=== PATIENT | female | born 1990 | race Caucasian/White ===

== ENCOUNTER 2019-03-31 20:25 | Emergency (ER) | payer OTHER ==
[~2019-03-31] VITALS: Ht 157.5 cm; Wt 49.4 kg
[2019-03-31 20:35] VITALS: BP 116/82
--- NOTE | 2019-03-31 20:47 | NUR ---
PT TAKEN TO BED 2.
[2019-03-31] MEDS ORDERED: SERT50TA PO (20:48)
--- NOTE | 2019-03-31 20:55 | NUR ---
CAME IN WITH C/O LOWER ABD PAIN WITH DIARRHEA FOR A WEEK.
--- NOTE | 2019-03-31 22:17 | NUR ---
ALL RESULTS BACK AND NOTED BY ERMD AND FOR D/C.
[2019-03-31 22:25] VITALS: BP 120/78
--- NOTE | 2019-03-31 22:25 | NUR ---
Patient discharged with v/s stable. Written and verbal after care instructions given and explained. Patient alert, oriented and verbalized understanding of instructions. Ambulatory with steady gait. All questions addressed prior to discharge. ID band removed. Patient advised to follow up with PMD. Rx of bentyl 20 mg given. Patient educated on indication of medication including possible reaction and side effects. Opportunity to ask questions provided and answered.
== END 2019-03-31 22:25 | disposition home or self-care (01) ==
LOC: MED 20:25
DX: K58.0 Irritable bowel syndrome with diarrhea (principal)
CPT/HCPCS: 81002; 81025; 99284